=== PATIENT | female | born 1995 | race Caucasian/White ===

== ENCOUNTER 2017-05-14 12:54 | Emergency (ER) | payer OTHER ==
--- NOTE | 2017-05-14 13:05 | UC ---
Skin Complaint HPI - HPI Summary HPI Summary: 21 YEAR OLD FEMALE PRESENTS WITH COMPLAINS OF LOWER LIP SWELLING. - History of Current Complaint Chief Complaint: UCSkin Time Seen by Provider: 05/14/17 13:05 Stated Complaint: FACIAL/LIP SKIN COMPLAINT Hx Obtained From: Patient Hx Last Menstrual Period: 05/2015 Onset/Duration: Sudden Onset Timing: Constant Onset Severity: Moderate Current Severity: Moderate Pain Scale Used: 0-10 Numeric - 5 Location: Discrete - LOWER LIP - Allergy/Home Medications Allergies/Adverse Reactions: Allergies Allergy/AdvReac Type Severity Reaction Status Date / Time No Known Allergies Allergy Verified 05/14/17 13:05 Home Medications: Home Medications Azithromycin TAB* [Zithromax TAB (Z-MEL) 250 mg #6 tabs] 2 tab PO .TODAY, THEN 1 DAILY 05/14/17 [History Confirmed 05/14/17] Sulfamethox/Trimethoprim DS* [Bactrim DS 800/160 TAB*] 1 tab BID 05/14/17 [ History Confirmed 05/14/17] Review of Systems Constitutional: Negative Skin: Other - LOWER LIP Eyes: Negative ENT: Negative Respiratory: Negative Cardiovascular: Negative Gastrointestinal: Negative Genitourinary: Negative Motor: Negative Neurovascular: Negative Musculoskeletal: Negative Neurological: Negative Psychological: Negative All Other Systems Reviewed And Are Negative: Yes PMH/Surg Hx/FS Hx/Imm Hx Previously Healthy: Yes - Surgical History Surgical History: Yes Surgery Procedure, Year, and Place: ear tubes - Family History Known Family History: Positive: None - Social History Alcohol Use: None Substance Use Type: None Smoking Status (MU): Light Every Day Tobacco Smoker Type: Cigarettes Amount Used/How Often: 1/2 ppd Length of Time of Smoking/Using Tobacco: age 16 yo Household Exposure Type: Cigarettes - Immunization History Most Recent Influenza Vaccination: 8069-7509 Most Recent Tetanus Shot: 03/25/10 Tdap Physical Exam Triage Information Reviewed: Yes Vital Signs Reviewed: Yes Eye Exam: Normal ENT Exam: Normal Dental Exam: Normal Neck exam: Normal Neck: Positive: 1 Respiratory Exam: Normal Cardiovascular Exam: Normal Abdominal Exam: Normal Musculoskeletal Exam: Normal Neurological Exam: Normal Psychological Exam: Normal Skin: Positive: Other - LOWER LIP SWELLING Course/Dx - Diagnoses Provider Diagnoses: LOWER LIP SWELLING/BURN Discharge - Discharge Plan Condition: Stable Disposition: HOME Prescriptions: Methylprednisolone [Medrol Dosepak 4 MG*] 4 mg PO .SEE MEL INSTRUCTION #21 tab Patient Education Materials: Superficial Burn (ED) Referrals: No Primary Care Phys,NOPCP [Medical Doctor] -
[2017-05-14 13:14] VITALS: BP 103/58
== END 2017-05-14 13:30 | disposition home or self-care (01) ==
LOC: UCCORT 12:54
DX: R22.0 Localized swelling, mass and lump, head (principal)
CPT/HCPCS: 99212; G0463

== ENCOUNTER 2017-06-01 11:05 | Emergency (ER) | payer OTHER ==
[2017-06-01 11:25] VITALS: BP 116/59
--- NOTE | 2017-06-01 12:18 | UC ---
Skin Complaint HPI - HPI Summary HPI Summary: SMALL PAPULAR RASH ON LEFT HAND + ITCHY , NO PAIN - History of Current Complaint Chief Complaint: UCSkin Time Seen by Provider: 06/01/17 12:03 Stated Complaint: RASH Hx Obtained From: Patient Hx Last Menstrual Period: 05/19/17 ?: No Onset/Duration: Gradual Onset, Lasting Days - 1, Still Present Onset Severity: Mild Current Severity: Mild Location: Hand (Left) Character: Pruritus Aggravating Factor(s): Touch Alleviating Factor(s): Nothing Associated Signs & Symptoms: Positive: Negative - Allergy/Home Medications Allergies/Adverse Reactions: Allergies Allergy/AdvReac Type Severity Reaction Status Date / Time No Known Allergies Allergy Verified 06/01/17 11:24 Home Medications: Home Medications busPIRone TAB* [Buspar TAB*] 5 mg PO BID 06/01/17 [History Confirmed 06/01/17] Review of Systems Constitutional: Negative Skin: Rash Eyes: Negative ENT: Negative Respiratory: Negative Is Patient Immunocompromised?: No All Other Systems Reviewed And Are Negative: Yes PMH/Surg Hx/FS Hx/Imm Hx Previously Healthy: Yes - Surgical History Surgical History: Yes Surgery Procedure, Year, and Place: ear tubes - Family History Known Family History: Positive: None Negative: Diabetes - Social History Alcohol Use: Rare Substance Use Type: None Smoking Status (MU): Light Every Day Tobacco Smoker Type: Cigarettes Amount Used/How Often: 1/2 ppd Length of Time of Smoking/Using Tobacco: age 16 yo Household Exposure Type: Cigarettes - Immunization History Most Recent Influenza Vaccination: yes 05/2017 Most Recent Tetanus Shot: 03/25/10 Tdap Physical Exam Triage Information Reviewed: Yes Appearance: Well-Appearing, No Pain Distress, Well-Nourished Vital Signs: Initial Vital Signs Temp 98.2 F 06/01/17 11:21 Pulse 92 06/01/17 11:21 Resp 14 06/01/17 11:21 BP 116/59 06/01/17 11:21 Pulse Ox 98 06/01/17 11:21 Vital Signs Reviewed: Yes Eyes: Positive: Conjunctiva Clear ENT: Positive: Normal ENT inspection, Hearing grossly normal, Pharynx normal Neck: Positive: Supple, Nontender, No Lymphadenopathy Respiratory: Positive: Chest non-tender, Lungs clear, Normal breath sounds Cardiovascular: Positive: RRR, No Murmur, Pulses Normal Abdominal Exam: Normal Skin: Positive: rashes - SINGLE PAPULAR RASH LEFT HAND Course/Dx - Diagnoses Provider Diagnoses: BUG BITE Discharge - Discharge Plan Condition: Stable Disposition: HOME Patient Education Materials: Insect Bite or Sting (ED) Referrals: Alexus Brown [Primary Care Provider] - If Needed
== END 2017-06-01 12:23 | disposition home or self-care (01) ==
LOC: UCCORT 11:05
DX: S60.562A Insect bite (nonvenomous) of left hand, initial encounter (principal); W57.XXXA Bitten or stung by nonvenomous insect and other nonvenomous arthropods, initial encounter; Y92.9 Unspecified place or not applicable; F17.210 Nicotine dependence, cigarettes, uncomplicated
CPT/HCPCS: 99211; G0463

== ENCOUNTER 2019-05-01 15:34 | Emergency (ER) | payer OTHER ==
[2019-05-01 16:15] VITALS: BP 109/64
--- NOTE | 2019-05-01 16:43 | UC ---
Skin Complaint HPI - HPI Summary HPI Summary: 23 yo mother of 2 with anxiety, concerned about mosquito borne illness after developing a headache today 1-2 days following a mosquito bite. No fever, chills , or vomiting. Loose stools x 4 today with mild cramping. Had a flaquito one month ago. No analgesics used. - History of Current Complaint Chief Complaint: UCHeadache Time Seen by Provider: 05/01/19 16:36 Stated Complaint: BUG BITE,COX Hx Obtained From: Patient Hx Last Menstrual Period: 04/28/19 Onset/Duration: Gradual Onset, Lasting Hours - less than 24 Skin Exposure Onset/Duration: Days Ago - 2 Timing: Constant Onset Severity: Moderate Pain Intensity: 5 Location: Diffuse Aggravating Factor(s): Nothing Alleviating Factor(s): Nothing Related History: Insect Bite/Sting - Allergy/Home Medications Allergies/Adverse Reactions: Allergies Allergy/AdvReac Type Severity Reaction Status Date / Time Sulfa (Sulfonamide Allergy Blisters Verified 05/01/19 16:07 Antibiotics) Home Medications: Home Medications ALPRAZolam [Xanax] 0.25 mg PO DAILY PRN 05/01/19 [History Confirmed 05/01/19] Valacyclovir HCl [Valtrex] 500 mg PO BID PRN 05/01/19 [History Confirmed ] PMH/Surg Hx/FS Hx/Imm Hx Previously Healthy: Yes - flaquito one month ago. Psychological History: Anxiety - Surgical History Surgical History: Yes Surgery Procedure, Year, and Place: ear tubes. cholecystectomy. appy. c- section - Family History Known Family History: Positive: Cardiac Disease Negative: Diabetes - Social History Occupation: Employed Full-time Lives: With Family Alcohol Use: None Substance Use Type: None Smoking Status (MU): Former Smoker Type: Cigarettes Amount Used/How Often: 1/2 ppd Length of Time of Smoking/Using Tobacco: age 16 yo When Did the Patient Quit Smoking/Using Tobacco: 06/2019 Household Exposure Type: Cigarettes - Immunization History Most Recent Influenza Vaccination: yes 05/2017 Most Recent Tetanus Shot: 03/25/10 Tdap Review of Systems All Other Systems Reviewed And Are Negative: Yes Constitutional: Positive: Negative. Negative: Fever, Chills ENT: Negative: Sore Throat Gastrointestinal: Positive: Negative Genitourinary: Positive: Negative Neurological: Positive: Headache - at vertex, without photophobia or vomiting. Neck is a little stiff. Psychological: Positive: Negative Is Patient Immunocompromised?: No Physical Exam Triage Information Reviewed: Yes Appearance: Well-Appearing, Pain Distress - mild Vital Signs: Initial Vital Signs Temp 98 F 05/01/19 16:09 Pulse 88 05/01/19 16:09 Resp 17 05/01/19 16:09 BP 109/64 05/01/19 16:09 Pulse Ox 95 05/01/19 16:09 Eye Exam: Other - SHIRLEY, no photophobia. Eyes: Positive: Conjunctiva Clear ENT: Positive: Pharynx normal, TMs normal Neck: Positive: Supple, Nontender, No Lymphadenopathy Respiratory: Positive: Lungs clear, Normal breath sounds Cardiovascular: Positive: RRR, No Murmur Abdomen Description: Positive: No Organomegaly, Soft, Other: - mild diffuse tenderness without guarding or rebound Musculoskeletal Exam: Normal Neurological: Positive: Alert, Muscle Tone Normal Psychological Exam: Other - anxious Skin Exam: Normal Course/Dx - Course Course Of Treatment: Reassured no findings to suggest serious illness. Use ibuprofen for headache. Follow up if sx develop. - Differential Diagnoses - Skin Complaint Differential Diagnoses: Cellulitis, Viral Exanthem, Other - mosquito born illness. - Diagnoses Provider Diagnosis: Viral syndrome Discharge ED - Sign-Out/Discharge Documenting (check all that apply): Patient Departure All imaging exams completed and their final reports reviewed: No Studies - Discharge Plan Condition: Good Disposition: HOME Patient Education Materials: Viral Syndrome (ED) Referrals: Virgil Monsivais MD [Primary Care Provider] - Additional Instructions: Eat lightly until diarrhea resolves, with a high intake of fluids. Use ibuprofen 600mg as needed up to 3 times per day for headache. Follow up if you develop fever, chills, myalgias or signs of progressive illness. - Billing Disposition and Condition Condition: GOOD Disposition: Home
== END 2019-05-01 17:13 | disposition home or self-care (01) ==
LOC: UCCORT 15:34
DX: B34.9 Viral infection, unspecified (principal); F41.9 Anxiety disorder, unspecified; Z88.2 Allergy status to sulfonamides; Z87.891 Personal history of nicotine dependence
CPT/HCPCS: 99211; G0463